=== PATIENT | male | born 1995 | race Two or more races ===

== ENCOUNTER 2021-09-30 13:13 | Emergency (ER) | payer OTHER ==
[~2021-09-30] VITALS: Ht 177.8 cm; Wt 73.0 kg
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
--- NOTE | 2021-09-30 14:13 | NUR ---
AT BED SIDE
[2021-09-30] MEDS ORDERED: TDAP [DIPH/PERTUSSIS/TET] 0.5 ML VIAL IM ONE ×2 (14:22→14:30)
[2021-09-30] MEDS ORDERED: ACETAMINOPHEN ES 500 MG TABLET ONE (14:22)
[2021-09-30] MEDS ORDERED: ACETAMINOPHEN ES 500 MG TABLET PO ONE (14:30)
--- NOTE | 2021-09-30 14:33 | NUR ---
PATIENT WENT FOR CT HEAD VIA WHEELCHAIR
--- NOTE | 2021-09-30 16:00 | NUR ---
Patient discharged to home in stable condition. Written and verbal after care instructions given. Patient verbalizes understanding of instruction.
[2021-09-30 16:03] VITALS: BP 128/75
== END 2021-09-30 16:00 | disposition home or self-care (01) ==
LOC: ER 13:15
DX: S01.01XA Laceration without foreign body of scalp, initial encounter (principal); X58.XXXA Exposure to other specified factors, initial encounter; Y93.89 Activity, other specified; Y92.89 Other specified places as the place of occurrence of the external cause; Y99.8 Other external cause status
CPT/HCPCS: 12001; 70450; 90471; 90715; 99284; A6403

== ENCOUNTER 2021-10-01 17:37 | Emergency (ER) | payer OTHER ==
[~2021-10-01] VITALS: Ht 180.3 cm; Wt 70.8 kg
--- NOTE | 2021-10-01 18:00 | NUR ---
26 yrs male here for fallow up MRI as out pt no pain no weekness no numbness
--- NOTE | 2021-10-01 18:15 | NUR ---
seen by plan to d/c home with fallow up with farrukh gómez
--- NOTE | 2021-10-01 18:30 | NUR ---
d/c instraction given to pt fully and verblized understood
[2021-10-01 18:44] VITALS: BP 123/72
== END 2021-10-01 18:45 | disposition home or self-care (01) ==
LOC: ER 17:42
DX: S06.0X0A Concussion without loss of consciousness, initial encounter (principal); Q04.9 Congenital malformation of brain, unspecified; Y08.89XA Assault by other specified means, initial encounter; Y93.89 Activity, other specified; Y92.89 Other specified places as the place of occurrence of the external cause; Y99.8 Other external cause status

== ENCOUNTER 2021-10-13 00:41 | Emergency (ER) | payer OTHER ==
[~2021-10-13] VITALS: Ht 177.8 cm; Wt 70.8 kg
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
--- NOTE | 2021-10-13 05:05 | NUR ---
Patient discharged to home in stable condition. Written and verbal after care instructions given. Patient verbalizes understanding of instruction.
[2021-10-13 05:06] VITALS: BP 124/60
== END 2021-10-13 05:06 | disposition home or self-care (01) ==
LOC: ER 00:42
DX: S01.01XD Laceration without foreign body of scalp, subsequent encounter (principal); Z48.02 Encounter for removal of sutures; M79.602 Pain in left arm; F17.200 Nicotine dependence, unspecified, uncomplicated; X58.XXXD Exposure to other specified factors, subsequent encounter
CPT/HCPCS: 72125-TC